=== PATIENT | male | born 1980 | race American Indian/Alaskan Native ===

== ENCOUNTER 2017-04-20 08:26 | Emergency (ER) | payer OTHER ==
[2017-04-20 09:08] VITALS: BP 110/85
[2017-04-20] MEDS ORDERED: NACL 0.9% 1000 ML 1,000 ML IV ONE (09:30)
[2017-04-20] MEDS ORDERED: BENADRYL IV ONE (09:30)
[2017-04-20] MEDS ORDERED: PEPCID IV ONE (09:30)
--- NOTE | 2017-04-20 09:31 | XRay Report ---
Left shoulder 3 views: History: Shoulder pain. Findings: No bony or articular abnormality. No fracture dislocation or soft tissue calcification. Impression: Essentially negative left shoulder.
--- NOTE | 2017-04-20 09:56 | Emergency Department Report ---
ED Upper Extremity Inj HPI - General Chief Complaint: Shoulder Injury Stated Complaint: SHOULDER PAIN Time Seen by Provider: 04/20/17 09:25 Source: patient Mode of arrival: Ambulatory Limitations: No Limitations - History of Present Illness Initial Comments: This is a 36-year-old male nontoxic, well nourished in appearance, no acute signs of distress presents to the ED with c/o of left shoulder pain 2 days. 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 Patient denies any trauma to the region. Patient denies any chest pain, numbness, tingling, fever , chills, nausea, vomiting, chest or abdominal pain. Patient denies any shortness of breath. Or difficulty breathing. Patient stated that he has allergies to Motrin and Tylenol and patient stated that he took Advil which caused now him to have left lip swelling and itching. Patient denies any angioedema, drooling or hoarseness. Patient denies any past medical history. MD Complaint: Injury to:: left, shoulder -: days(s) (2) Other Extremity Injury: Shoulder: Left Other Injuries: none Place: work Severity scale (0 -10): 8 Improves With: immobilization Worsens With: movement of extremity Associated Symptoms: denies other symptoms. denies: weakness, numbness, neck pain, suspects foreign body, nausea/vomiting, heard/felt popping sensat - Related Data Previous Rx's Medication Instructions Recorded Last Taken Type Cyclobenzaprine [Flexeril] 10 mg PO BID PRN #10 tablet 04/20/17 Unknown Rx Prednisone [predniSONE 10 mg 10 mg PO .TAPER #1 tab.ds.pk 04/20/17 Unknown Rx (6-Day Pack, 21 Tabs)] diphenhydrAMINE [Benadryl CAP] 25 mg PO Q8HR PRN #20 capsule 04/20/17 Unknown Rx Allergies Allergy/AdvReac Type Severity Reaction Status Date / Time acetaminophen [From Tylenol] Allergy Swelling Verified 04/20/17 09:08 ibuprofen [From Advil] Allergy Swelling Verified 04/20/17 09:08 ED Review of Systems ROS: Stated complaint: SHOULDER PAIN Other details as noted in HPI Constitutional: denies: chills, fever Eyes: denies: eye pain, eye discharge, vision change ENT: denies: ear pain, throat pain Respiratory: denies: cough, shortness of breath, wheezing Cardiovascular: denies: chest pain, palpitations Endocrine: no symptoms reported Gastrointestinal: denies: abdominal pain, nausea, diarrhea Genitourinary: denies: urgency, dysuria Musculoskeletal: arthralgia. denies: back pain, joint swelling Skin: denies: rash, lesions Neurological: denies: headache, weakness, paresthesias Psychiatric: denies: anxiety, depression Hematological/Lymphatic: denies: easy bleeding, easy bruising Other: Upper lip swelling with itching. ED Past Medical Hx - Past Medical History Previous Medical History?: Yes Additional medical history: Lip swelling after taking Tylenol - Surgical History Past Surgical History?: No - Social History Smoking Status: Current Every Day Smoker Substance Use Type: Alcohol, Non Opiate Pain - Medications Home Medications: Home Medications Medication Instructions Recorded Confirmed Last Taken Type Cyclobenzaprine [Flexeril] 10 mg PO BID PRN #10 tablet 04/20/17 Unknown Rx Prednisone [predniSONE 10 mg 10 mg PO .TAPER #1 tab.ds.pk 04/20/17 Unknown Rx (6-Day Pack, 21 Tabs)] diphenhydrAMINE [Benadryl CAP] 25 mg PO Q8HR PRN #20 capsule 04/20/17 Unknown Rx ED Physical Exam - General Limitations: No Limitations General appearance: alert, in no apparent distress - Head Head exam: Present: atraumatic, normocephalic - Eye Eye exam: Present: normal appearance, PERRL, EOMI Pupils: Present: normal accommodation - ENT ENT exam: Present: normal exam, normal orophraynx, mucous membranes moist, TM's normal bilaterally, normal external ear exam, other (Upper lip swelling. No angioedema present. Uvula midline. No swelling noted. Tongue normal with no swelling.) - Neck Neck exam: Present: normal inspection, full ROM. Absent: tenderness, meningismus, lymphadenopathy, thyromegaly - Respiratory Respiratory exam: Present: normal lung sounds bilaterally. Absent: respiratory distress, wheezes, rales, rhonchi, stridor, chest wall tenderness, accessory muscle use, decreased breath sounds, prolonged expiratory - Cardiovascular Cardiovascular Exam: Present: regular rate, normal rhythm, normal heart sounds. Absent: bradycardia, tachycardia, irregular rhythm, systolic murmur, diastolic murmur, rubs, gallop - GI/Abdominal GI/Abdominal exam: Present: soft, normal bowel sounds. Absent: distended, tenderness, guarding, rebound, rigid, diminished bowel sounds - Rectal Rectal exam: Present: deferred - Extremities Exam Extremities exam: Present: normal inspection, full ROM, tenderness, normal capillary refill. Absent: pedal edema, joint swelling, calf tenderness - Expanded Upper Extremity Exam Left General: Present: normal inspection Shoulder Exam: Present: normal inspection, full ROM, tenderness (deltoid muscle region). Absent: swelling, abrasion, laceration, deformity, crepidus, dislocation, erythema, tenderness over AC joint Upper Arm exam: Present: normal inspection, full ROM. Absent: tenderness, swelling, abrasion, laceration, ecchymosis, deformity, crepidus, dislocation, erythema Elbow exam: Present: normal inspection, full ROM Forearm Wrist exam: Present: normal inspection, full ROM Hand Wrist exam: Present: normal inspection, full ROM Neuro motor exam: Present: wrist extension intact, thumb opposition intact, thumb IP flexion intact, thumb adduction intact, fingers 2-5 abduction intact Neurosensory exam: Present: 2-point discrimination, radial nerve intact, ulnar nerve intact, median nerve intact Vascular: Present: vascular compromise, normal capillary refill, radial pulse, brachial pulse, ulnar pulse - Back Exam Back exam: Present: normal inspection, full ROM. Absent: tenderness, CVA tenderness (R), CVA tenderness (L), muscle spasm, paraspinal tenderness, vertebral tenderness, rash noted - Neurological Exam Neurological exam: Present: alert, oriented X3, CN II-XII intact, normal gait, reflexes normal - Psychiatric Psychiatric exam: Present: normal affect, normal mood - Skin Skin exam: Present: warm, dry, intact, normal color. Absent: rash ED Course Vital Signs 04/20/17 09:04 Temperature 98.2 F Pulse Rate 75 Respiratory 18 Rate Blood Pressure 110/85 O2 Sat by Pulse 98 Oximetry - Reevaluation(s) Reevaluation #1: 04/20/17 10:00 Patient is speaking in full sentences with no signs of distress noted. ED Medical Decision Making - Medical Decision Making This is a 36-year-old male that presents with left shoulder muscular strain and allergic reaction. Patient stable and was examined by me. X-ray has been obtained and dictated by radiologist within normal limits. Patient is notified of x-ray results with noted by the patient. He did receive 1 L of normal saline , Benadryl, Pepcid and Solu-medrol. Patient is d/c with prednisone and Benadryl at discharge. Patient was instructed not to operate any machinery whiel taking Bend[place] and discharge due to drowsiness and patient stated he will have someone drive him home after discharge. Patient was also instructed and referred to Follow-up with a primary care doctor in 3-5 days or if symptoms worsen and continue return to emergency room as soon as possible. At time of discharge, the patient does not seem toxic or ill in appearance. No acute signs of distress noted. Patient agrees to discharge treatment plan of care. No further questions noted by the patient. Critical care attestation.: If time is entered above; I have spent that time in minutes in the direct care of this critically ill patient, excluding procedure time. ED Disposition Clinical Impression: Muscle strain, shoulder region Qualifiers: Encounter type: initial encounter Laterality: left Qualified Code(s): S46.912A - Strain of unspecified muscle, fascia and tendon at shoulder and upper arm level, left arm, initial encounter Allergic reaction Qualifiers: Encounter type: initial encounter Qualified Code(s): T78.40XA - Allergy, unspecified, initial encounter Disposition: - TO HOME OR SELFCARE Is pt being admited?: No Does the pt Need Aspirin: No Condition: Stable Instructions: Muscle Strain (ED), Cyclobenzaprine (By mouth), Diphenhydramine ( By mouth), Prednisone (By mouth) Additional Instructions: Follow-up with your primary care doctor in 3-5 days or if symptoms worsen such as bladder or bowel stability, chest pain, short of breath, numbness or tingling sensation in extremities, headache, dizziness, visual changes, nausea vomiting, or abdominal pain, return back to emergency room as was possible. Take ibuprofen and Flexeril as prescribed. Do not operate heavy machinery while taking Flexeril due to sedation Do not operate any machinery after discharge due to drowsiness of benadryl. Prescriptions: Cyclobenzaprine [Flexeril] 10 mg PO BID PRN #10 tablet PRN Reason: Muscle Spasm diphenhydrAMINE [Benadryl CAP] 25 mg PO Q8HR PRN #20 capsule PRN Reason: Itching Prednisone [predniSONE 10 mg (6-Day Pack, 21 Tabs)] 10 mg PO .TAPER #1 tab.ds.pk Referrals: PRIMARY CARE, [Primary Care Provider] - 3-5 Days [facility] [Staff Physician] - 3-5 Days [facility] [Outside] - 3-5 Days [facility] [Outside] - 3-5 Days Forms: Work/School Release Form(ED)
== END 2017-04-20 10:53 | disposition home or self-care (01) ==
LOC: ED 08:26
DX: S46.912A Strain of unspecified muscle, fascia and tendon at shoulder and upper arm level, left arm, initial encounter (principal); F17.200 Nicotine dependence, unspecified, uncomplicated; V43.52XA Car driver injured in collision with other type car in traffic accident, initial encounter; Y93.89 Activity, other specified; Y92.89 Other specified places as the place of occurrence of the external cause; Y99.8 Other external cause status
CPT/HCPCS: 73030; 96361; 96374; 96375; 99283; J1200; J2930; J7030